=== PATIENT | male | born 1980 | race Caucasian/White ===

== ENCOUNTER 2025-04-30 09:58 | Day surgery (SDC) | payer OTHER, SELFPAY ==
[2025-04-30] MEDS: LACTATED RINGERS 1000 ML 1,000 ML 100 ML IV (10:10)
[2025-04-30 10:19] VITALS: BMI 25.9
[2025-04-30 10:24] VITALS: BP 129/73; PULSE 60; RESP 16; TEMP 36.7; O2SAT 99
[2025-04-30] MEDS: SODIUM CHLORIDE 0.9 % (FLUSH) 10 ML SYRINGE IVF (10:35)
[2025-04-30] MEDS: BUPIVACAINE 0.25% 30 ML INJECTION (11:50)
--- NOTE | 2025-04-30 12:48 | W.PODPROC_ITS ---
Date of Procedure: 04/30/25 Surgeon: Tyrone Swanson DPM Pre-op Diagnosis: Hallux rigidus left foot Post-op Diagnosis: Hallux rigidus left foot Type of Procedure: Cheilectomy left 1st MPJ Indications: Patient has significant arthritic changes of the 1st MPJ left foot. His left surgical intervention. Reviewed the procedure primary care physician potential complications. These include but not limited to: Poor wound healing, infection, to continued pain, potential need for future surgery, deep venous thrombosis, pulmonary embolism possibly . He understands risks and written consent obtained. Site was marked. All questions answered. Procedure Description: Patient from the operating room placed supine position after suitable time-out IV sedation was initiated. 30 mL of 0.25% Marcaine plain were injected into left foot. He was prepped and draped in sterile fashion. A time-out protocol followed. The left foot was exsanguinated and the tourniquet inflated to 250 mm Hg. Linear incision was made over the dorsal aspect of the 1st metatarsoph alangeal joint. Incision was carried down through skin subcutaneous tissues. A linear capsular incision was made and the tissues reflected away from the head of the 1st metatarsal base of the proximal phalanx. A significant and severe bony spur was noted to the 1st metatarsal head. A dorsal 30% of the metatarsal head was void of cartilage. Sagittal saw was used to resect the large bony prominence and the area of absent cartilage. The mediolateral aspects of the metatarsal head were also remodeled with a bur. The spurring of the proximal phalangeal base was removed with a rongeur and remodeled with a bur. Wound was thoroughly irrigated normal sterile saline. First MPJ had normal gliding motion without catching. C-arm images confirmed adequate resection of the bony spurring of the 1st MPJ fusion Capsular tissue was remodeled and closed with 3-0 Vicryl. Subcutaneous tissues reapproximated for Monocryl skin omaira and 4-0 Prolene. Sterile dressings applied. Tourniquet was released normal capillary fill time returned to all digits. He was transported from OR to same-day surgery with vital signs stable and vascular status intact. He was discharged home per same-day surgery protocol. Is weight-bearing as tolerated. He is given oxycodone for pain. Both written and verbal postop instructions given. Follow-up later this week. Anesthesia: MAC and local Hemostasis: ankle Estimated blood loss (mL): 2 Provider Operated C-arm: Mini C-arm was operated by Dr. Swanson for cheilectomy 1st MPJ left foot. Total spot images 10. Total fluoro time 00:00:09. Specimens: none sent Disposition: same day
[2025-04-30 12:55] VITALS: BP 111/80; PULSE 57; RESP 16; TEMP 36.6; O2SAT 99
--- NOTE | 2025-04-30 12:57 | P.ANES_ITS ---
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
--- NOTE | 2025-04-30 12:57 | W.ANESCHARGE ---
Anesthesia Charges Start Date/Time Anesthesia Start Date: 04/30/25 Anesthesia Start Time: 11:49 Stop Date/Time Anesthesia Stop Date: 04/30/25 Anesthesia Stop Time: 12:55 Coding CPT Codes CPT Codes: ANESTH LOWER LEG BONE SURG - 64879 ([id number]) P1 - NORMAL HEALTHY PATIENT, QZ - OPERATIONS PROGRAM MANAGER C W/O RADIO SURVEY WORKER BY
[2025-04-30 13:00] VITALS: BP 113/78; PULSE 57; RESP 16; O2SAT 99
[2025-04-30 13:15] VITALS: BP 108/69; PULSE 60; RESP 16; O2SAT 99
[2025-04-30 13:30] VITALS: BP 129/78; PULSE 54; RESP 16; O2SAT 100
[2025-04-30] MEDS: IBUPROFEN 400 MG TABLET PO (14:05)
--- NOTE | 2025-04-30 14:27 | SUR.PHASEII ---
Patient was taught crutch training by PT. Patient verbalized readiness to be discharged and understanding of discharge instructions. Patient voided prior to discharge.
--- NOTE | 2025-04-30 14:48 | REH.PT ---
Pt is s/p Cheilectomy left 1st MPJ. Pt was fitted for crutches and issued for home use. Instructed pt in gt level surfaces with 1 and 2 crutches, basic transfers and verbally instructed in stairs sequence and car transfers. Goals of PT were met.
== END 2025-04-30 14:30 | disposition home or self-care (01) ==
LOC: OR 10:03
PROVIDERS: PCP Surgery; Visit Provider Podiatrist
PROC: (CPT 28289; principal; 2025-04-30 11:30)
DX: M20.22 Hallux rigidus, left foot (principal)
CPT/HCPCS: 28289; 01480; 73620; 76000; A9270; J0665; J0690; J2250; J2405; J2704; J3490; J7120